=== PATIENT | female | born 1985 | race Two or more races ===

== ENCOUNTER 2020-06-04 17:36 | Inpatient (IN) | payer MEDICAID ==
[~2020-06-04] VITALS: Ht 160 cm; Wt 68.0 kg
--- NOTE | 2020-06-04 18:45 | NUR ---
m/s recreation director: notes received pt from [place] as a direct admit via [facility] accompanied by 2 emt. pt awake, a/ox4; bulgarian speaking only. ambulatory. c/o slight abdominal pain 07/10. oriented to room and surroundings. afebrile. pt is tachycardic 120, pt says she is a little bit of nervous. instructed to call for assistance.
--- NOTE | 2020-06-04 18:50 | NUR ---
m/s diffusion furnace operator: notes bebe archer (manpower development specialist) notified and made aware re: direct admit.
[2020-06-04 18:55] VITALS: BP 136/81
--- NOTE | 2020-06-04 19:15 | NUR ---
m/s revenue field agent: notes bedside report given to wily (marixa) for admission and continuity of care.
[2020-06-04] MEDS ORDERED: ACETAMINOPHEN 650 MG/SUPP.RECT RC PRN (19:30)
[2020-06-04] MEDS ORDERED: IV D5/0.45 NACL 1,000 ML IV PRN (19:30)
--- NOTE | 2020-06-04 19:30 | NUR ---
MSRN FULLY AWAKE, ABDOMINAL DISCOMFORTS TOLERABLE FOR NOW. ORIENTED TO ROOM FACILITIES. NEEDS DRYING AND WINDING SUPERVISOR, PATIENT CROATIAN SPEAKING WITH LIMITED BRITISH. AWAITING FOR ADMISSION ORDERS. CALL LIGHT USE INSTRUCTED, PLAN OF CARE AND MEDICATION REGIMEN EXPLAINED TO PATIENT WITH DRYING AND WINDING SUPERVISOR, APPEARS TO UNDERSTAND. SAFETY PRECAUTIONS EMPHASIZED. TO CONTINUE
[2020-06-04 20:00] VITALS: BP 109/65
--- NOTE | 2020-06-04 20:45 | NUR ---
MSRN SPOKE WITH , STATES PATIENT DOES NOT TAKE HOME MEDICATIONS. NO FLU SHOT AND REFUSED ANY VACCINE.
--- NOTE | 2020-06-04 20:45 | NUR ---
MSRN SPOKE TO OUTSIDE, BROUGHT SOME PERSONAL STUFF FOR PATIENT. ABLE TO PROVIDED HISTORY OF PATIENT IN MALAY. WILL UPDATE TIME OF SURGERY
[2020-06-04] MEDS: MORPHINE SULFATE INJ 2 MG/ML DISP.SYRIN IV PRN (22:04)
--- NOTE | 2020-06-04 22:05 | NUR ---
MSRN SEVERE ABDOMINAL RIGHT LOWER PAIN, MORPHINE ADMINISTERED ORDERED. DENIES ANY NAUSEA FEW MINS AFTER. BEDREST INSTRUCTED.
--- NOTE | 2020-06-04 22:10 | NUR ---
MSRN STARTED ON IVF AT 75 CC/HR. OTHER DUE MEDS ADMINISTERED. REMINDED TO CALL STAFF FOR FURTHER ABDOMINAL DISCOMFORTS. STATED WILL CALL IF WORSENS. SPOKE TO DR. MADISON EARLIER FOR CONFIRMATION OF SURGERY NATHALIE.
[2020-06-04] MEDS: METRONIDAZOLE 500MG/ NS 100ML 500 MG in PREMIX 1 EA IV SCH (22:11)
[2020-06-04] MEDS: ONDANSETRON HCL/PF 4 MG/2 ML VIAL IVP PRN (23:40)
--- NOTE | 2020-06-04 23:40 | NUR ---
MSRN VOMITTED BILE COLORED EMESIS. ZOFRAN 4 MG ADMINISTERED. PRESENT IVF INFUSING WELL. KEPT NPO. CONSENTED FOR SURGERY
--- NOTE | 2020-06-05 00:48 | NUR ---
MSRN FALLING ASLEEP, CLOSELY WATCHED.
--- NOTE | 2020-06-05 05:30 | NUR ---
MSRN RECEIVED CALL FROM OR PATIENT TO HAVE SURGERY IN AN HOUR. NAUSEATED, VOMITTED, ZOFRAN 4 MG IVP ADMINISTERED. BEDREST FOR NOW.
[2020-06-05] MEDS: METRONIDAZOLE 500MG/ NS 100ML 500 MG in PREMIX 1 EA IV SCH ×2 (05:53→13:02)
[2020-06-05] MEDS: ONDANSETRON HCL/PF 4 MG/2 ML VIAL IVP PRN ×2 (05:57→17:01)
--- NOTE | 2020-06-05 06:32 | NUR ---
MSRN PATIENT READY FOR SURGERY, AWAITING FOR OR.
[2020-06-05 06:33] LABS: BASOPHILS % (AUTO) 0.3 % (0.0-2.0); EOSINOPHILS % (AUTO) 0.3 % (0.0-6.0); HEMATOCRIT 30 % (33-45); HEMOGLOBIN 10.1 g/dL (11.5-14.8); LYMPHOCYTES # (AUTO) 1.1 /CMM (0.8-4.8); LYMPHOCYTES % (AUTO) 11.3 % (20.0-44.0); MEAN CORPUSCULAR HGB CONC 33 g/dl (31.0-36.0); MEAN CORPUSCULAR VOLUME 80 fL (82-100); MONOCYTES # (AUTO) 0.8 /CMM (0.1-1.30); MONOCYTES % (AUTO) 8.2 % (2.0-12.0); NEUTROPHILS # (AUTO) 8.1 /CMM (1.8-8.9); NEUTROPHILS % (AUTO) 79.9 % (43.0-81.0); PLATELET COUNT (AUTO) 269 /CMM (150-450); RED BLOOD CELL COUNT(AUTO) 3.78 MIL/uL (4.0-5.2); WHITE BLOOD COUNT (AUTO) 10.1 K/uL (4.3-11.0)
[2020-06-05 06:47] LABS: CALCIUM, SERUM 8.6 mg/dL (8.5-10.1); CREATININE 0.7 mg/dL (0.6-1.3); MAGNESIUM 1.9 mg/dL (1.8-2.4); PHOSPHORUS 2.8 mg/dL (2.5-4.9); POTASSIUM 3.1 mmol/L (3.5-5.1)
--- NOTE | 2020-06-05 06:56 | NUR ---
MSRN TO OR VIA BED WITH OR STAFF.
[2020-06-05] MEDS ORDERED: FENTANYL PF 100MCG/2ML AMPUL ONE (08:00)
[2020-06-05] MEDS ORDERED: ROCURONIUM BROMIDE 50 MG/5 ML ONE (08:00)
[2020-06-05] MEDS ORDERED: MIDAZOLAM HCL 2 MG/2ML VIAL ONE (08:00)
[2020-06-05] MEDS ORDERED: SUCCINYLCHOLINE CHLORIDE 20 MG/ML VIAL ONE (08:00)
[2020-06-05] MEDS ORDERED: BUPIVACAINE MPF W/EPI 0.25% 30 ML VIAL ONE (08:25)
[2020-06-05] MEDS ORDERED: PANTOPRAZOLE 40 MG VIAL IV SCH (09:00)
--- NOTE | 2020-06-05 09:50 | NUR ---
RETURNED TO RM. FROM OR.VS STABLE.3 LRG. ABD. BANDAIDS DRY AND INTACT.IV INFUSING.
[2020-06-05 10:00] VITALS: BP 120/71
[2020-06-05] MEDS: POTASSIUM CL. PREMIX PERIPHER. 50 ML IV SCH ×4 (10:53→17:28)
[2020-06-05] MEDS ORDERED: CEFTRIAXONE 1 G in IV D5W 50 ML IV SCH (13:00)
[2020-06-05] MEDS: MORPHINE SULFATE INJ 2 MG/ML DISP.SYRIN IV PRN (13:21)
[2020-06-05] MEDS ORDERED: DOCU-141 PO (14:56)
[2020-06-05 16:00] VITALS: BP 113/62
--- NOTE | 2020-06-05 16:30 | NUR ---
POTASSIUM REPLACEMENT GIVEN.
--- NOTE | 2020-06-05 18:00 | NUR ---
DR. RITCHIE HERE,CHECKED PT. WANTS HER TO PASS FLATUS PRIOR TO LEAVING. MEDICATED X 1 FOR PAIN,X1 FOR NAUSEA,POTASSIUM REPLACEMENT GIVEN.MICHAEL. WELL.UP IN CANCHOLA WALKING
--- NOTE | 2020-06-05 18:30 | NUR ---
SPOUSE CALLING IN SEVERAL TIMES CHECKING ON .
--- NOTE | 2020-06-05 19:30 | NUR ---
MSRN AWAKENED, FOR DISCHARGE ONCE PATIENT HAD FLATUS. STATED NOT YET OF THIS TIME. V/S STABLE. LAP SITES DRY AND CLEAN. STABLE
[2020-06-05 20:00] VITALS: BP 97/49
--- NOTE | 2020-06-05 20:30 | NUR ---
MSRN WENT TO RESTROOM, NO BM ONLY GAS PT STATED.
--- NOTE | 2020-06-05 20:56 | NUR ---
MSRTeresa BROWN AND RENEA TAKEN OUT. DISCHARGE INSTRUCTIONS REVIEWED WITH PATIENT. APPEARS TO UNDERSTAND. AWAITING FOR .
--- NOTE | 2020-06-05 21:07 | NUR ---
MSRN DISCHARGED TO HOME WITH ALL PERSONAL BELONGINGS IN SATISFACTORY CONDITION WITH VIA PRIVATE CAR.
== END 2020-06-05 21:09 | disposition home or self-care (01) | DRG 233 ==
LOC: MED 18:37
PROVIDERS: ADMIT Nurse Practitioner Family; ATTEND Nurse Practitioner Family
PROC: 0DTJ4ZZ Resection of Appendix, Percutaneous Endoscopic Approach (ICD-10-PCS; principal; 2020-06-05)
DX: K35.33 Acute appendicitis with perforation, localized peritonitis, and gangrene, with abscess (principal); D17.71 Benign lipomatous neoplasm of kidney
CPT/HCPCS: 36415; 80048-TC; 80061-TC; 83735-TC; 84100-TC; 84702-TC; 85025-TC; 85610-TC; 85730-TC; 86850-TC; 87081-TC; A4216; C9113; G0378; J0330; J0690; J0696; J1100; J2250; J2270; J2405; J2704; J3010; J3480; J3490; J7060